=== PATIENT | male | born 1945 | race Caucasian/White ===

== ENCOUNTER 2020-07-01 07:55 | Emergency (ER) | payer OTHER ==
[~2020-07-01] VITALS: Ht 175.3 cm; Wt 59.0 kg
[2020-07-01 08:07] VITALS: BP_SYST 156
[2020-07-01] MEDS ORDERED: KETOROLAC TROMETHAMINE 60 MG/2 ML VIAL IM ONE (08:30)
[2020-07-01] MEDS ORDERED: TRAM50TA2 PO (10:14)
[2020-07-01] MEDS ORDERED: IBUP-1971 PO (10:14)
[2020-07-01 10:45] VITALS: BP_SYST 134
== END 2020-07-01 10:45 | disposition home or self-care (01) ==
LOC: SED 07:55
DX: S12.8XXA Fracture of other parts of neck, initial encounter (principal); W18.39XA Other fall on same level, initial encounter; Y93.89 Activity, other specified; Y92.89 Other specified places as the place of occurrence of the external cause; Y99.8 Other external cause status
CPT/HCPCS: 70450; 73200; 74176; 76376; 96372; 99285; J1885